=== PATIENT | female | born 1940 | race Caucasian/White ===

== ENCOUNTER 2019-04-18 07:26 | Inpatient (IN) | payer MEDICARE, OTHER ==
[2019-04-18] MEDS ORDERED: Sodium Chloride 0.9% 10 ML Syringe FLUSH PRN (07:48)
[2019-04-18] MEDS ORDERED: HYDROmorphone 0.5 MG/0.5 ML Syringe IVPUSH ONE ×2 (07:57→09:18)
--- NOTE | 2019-04-18 07:57 | EDM.PDOC ---
ED HPI GENERAL MEDICAL PROBLEM - General Chief Complaint: Abdominal Pain Stated Complaint: STOMACH PAIN Time Seen by Provider: 04/18/19 07:45 Source of Information: Reports: Patient, Old Records, RN History Limitations: Reports: No Limitations - History of Present Illness INITIAL COMMENTS - FREE TEXT/NARRATIVE: 78 yo female presents with progressive RLQ abdominal pain that began yesterday. She has a pHx of a hysterectomy and diverticulosis. She has no fever or dysuria. Pain is worse with movement or pressing on the area. She has had only some water so far today orally. 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: Other (see below) (none) Abdominal Pain Score (Numeric/FACES): 8 - Related Data Allergies Allergy/AdvReac Type Severity Reaction Status Date / Time Penicillins Allergy Rash Verified 11/09/14 06:51 sulfamethoxazole Allergy Hives Verified 11/09/14 06:51 [From Bactrim] trimethoprim [From Bactrim] Allergy Hives Verified 11/09/14 06:51 Home Meds: Home Meds Aspirin 325 mg PO DAILY 07/29/13 [History] Vitamin B Complex [B Complex] 1 each PO DAILY 07/29/13 [History] Calcium & Magnesium Carbonate [Antacid Gelatin Caplet] 1 tab PO DAILY 11/07/14 [ History] Alendronate Sodium 35 mg PO WEEKLY 04/18/19 [History] Cholecalciferol (Vitamin D3) [Vitamin D3] 1,000 unit PO DAILY 04/18/19 [History] Fluticasone Propionate [Flonase Allergy Relief] 2 spray CÉSAR DAILY 04/18/19 [ History] Past Medical History Cardiovascular History: Reports: Heart Murmur Gastrointestinal History: Reports: Diverticulosis 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 Denies: Black Stool, Bloody Stool, Constipation, Diarrhea, Distension, Hematemesis, Hematochezia, Melena, Nausea, Vomiting : Reports: No Symptoms Musculoskeletal: Reports: No Symptoms Skin: Reports: No Symptoms Neurological: Reports: No Symptoms Psychiatric: Reports: No Symptoms ED EXAM, GI/ABD - Physical Exam Exam: See Below Exam Limited By: No Limitations General Appearance: Alert, WD/WN, No Apparent Distress Eyes: Bilateral: Normal Appearance Ears: Normal External Exam, Normal Canal, Hearing Grossly Normal Throat/Mouth: Normal Inspection, Normal Lips, Normal Oropharynx, Normal Voice, No Airway Compromise Head: Atraumatic, Normocephalic Neck: Normal Inspection Respiratory/Chest: No Respiratory Distress, Lungs Clear, Normal Breath Sounds, No Accessory Muscle Use Cardiovascular: Regular Rate, Rhythm, No Edema GI/Abdominal Exam: Soft, No Distention, Guarding, Rebound, Tender (especially over McBurney's Point), Abnormal Bowel Sounds (decreased). No: Non-Tender, Distended, Rigid Extremities: Normal Inspection, Normal Range of Motion, Non-Tender, No Pedal Edema Neurological: Alert, Oriented, CN II-XII Intact, Normal Cognition, No Motor/ Sensory Deficits Psychiatric: Normal Affect, Normal Mood Skin Exam: Warm, Dry, Intact, Normal Color, No Rash Course - Vital Signs Text/Narrative:: Dr. Oliveira paged @ [phone] Last Recorded V/S: Last Vital Signs Temp 36.4 C 04/18/19 07:45 Pulse 89 04/18/19 09:07 Resp 16 04/18/19 09:07 BP 115/53 L 04/18/19 09:07 Pulse Ox 97 04/18/19 09:07 - Orders/Labs/Meds Orders: Active Orders 24 hr Category Date Time Status Iopamidol [Isovue-300 (61%)] Med 04/18/19 08:41 Active 100 ml IV . DIRECTED PRN Lactated Ringers [Ringers, Lactated] 1,000 ml Med 04/18/19 08:30 Active IV ASDIRECTED Sodium Chloride 0.9% [Saline Flush] Med 04/18/19 07:48 Active 10 ml FLUSH ASDIRECTED PRN Saline Lock Insert [OM.PC] Routine Oth 04/18/19 07:48 Ordered Medication Orders Lactated Ringer's (Ringers, Lactated) 1,000 mls @ 500 mls/hr IV ASDIRECTED KURTIS Last Admin: 04/18/19 08:32 Dose: 500 mls/hr Iopamidol (Isovue-300 (61%)) 100 ml IV . DIRECTED PRN PRN Reason: RADIOLOGY EXAM Stop: 04/19/19 08:42 Last Admin: 04/18/19 08:51 Dose: 100 ml Sodium Chloride (Saline Flush) 10 ml FLUSH ASDIRECTED PRN PRN Reason: Keep Vein Open Last Admin: 04/18/19 07:56 Dose: 10 ml Labs: Laboratory Tests 04/18/19 04/18/19 04/18/19 Range/Units 07:57 07:57 07:57 WBC 8.5 (4.5-11.0) K/uL RBC 3.90 (3.30-5.50) M/uL Hgb 10.3 L (12.0-15.0) g/dL Hct 33.5 L (36.0-48.0) % MCV 86 (80-98) fL MCH 26 L (27-31) pg MCHC 31 L (32-36) % Plt Count 184 (150-400) K/uL Sodium 139 L (140-148) mmol/L Potassium 4.2 (3.6-5.2) mmol/L Chloride 102 (100-108) mmol/L Carbon Dioxide 25 (21-32) mmol/L Anion Gap 16.2 H (5.0-14.0) mmol/L BUN 13 (7-18) mg/dL Creatinine 0.9 (0.6-1.0) mg/dL Est Cr Clr Drug Dosing 40.09 mL/min Estimated GFR (MDRD) > 60 (>60) Glucose 140 H (74-106) mg/dL Calcium 8.6 (8.5-10.1) mg/dL C-Reactive Protein 4.84 H (0.0-0.3) mg/dL Urine Color (YELLOW) Urine Appearance (CLEAR) Urine pH (5.0-8.0) Ur Specific [place] (1.008-1.030) Urine Protein (NEGATIVE) mg/dL Urine Glucose (UA) (NEGATIVE) mg/dL Urine Ketones (NEGATIVE) mg/dL Urine Occult Blood (NEGATIVE) Urine Nitrite (NEGATIVE) Urine Bilirubin (NEGATIVE) Urine Urobilinogen (0.2-1.0) EU/dL Ur Leukocyte Esterase (NEGATIVE) Urine RBC (0-5) Urine WBC (0-5) Ur Epithelial Cells Amorphous Sediment Urine Bacteria Urine Mucus 04/18/19 Range/Units 08:33 WBC (4.5-11.0) K/uL RBC (3.30-5.50) M/uL Hgb (12.0-15.0) g/dL Hct (36.0-48.0) % MCV (80-98) fL MCH (27-31) pg MCHC (32-36) % Plt Count (150-400) K/uL Sodium (140-148) mmol/L Potassium (3.6-5.2) mmol/L Chloride (100-108) mmol/L Carbon Dioxide (21-32) mmol/L Anion Gap (5.0-14.0) mmol/L BUN (7-18) mg/dL Creatinine (0.6-1.0) mg/dL Est Cr Clr Drug Dosing mL/min Estimated GFR (MDRD) (>60) Glucose (74-106) mg/dL Calcium (8.5-10.1) mg/dL C-Reactive Protein (0.0-0.3) mg/dL Urine Color Other A (YELLOW) Urine Appearance Cloudy A (CLEAR) Urine pH 7.5 (5.0-8.0) Ur Specific [place] 1.020 (1.008-1.030) Urine Protein 100 H (NEGATIVE) mg/dL Urine Glucose (UA) Negative (NEGATIVE) mg/dL Urine Ketones Trace H (NEGATIVE) mg/dL Urine Occult Blood Negative (NEGATIVE) Urine Nitrite Negative (NEGATIVE) Urine Bilirubin Small H (NEGATIVE) Urine Urobilinogen 0.2 (0.2-1.0) EU/dL Ur Leukocyte Esterase Trace H (NEGATIVE) Urine RBC Not seen (0-5) Urine WBC 5-10 H (0-5) Ur Epithelial Cells Moderate Amorphous Sediment Not seen Urine Bacteria Rare Urine Mucus Many Meds: Medications Generic Name Dose Route Start Last Admin Trade Name Freq PRN Reason Stop Dose Admin Lactated Ringer's 1,000 mls @ 500 mls/hr 04/18/19 08:30 04/18/19 08:32 Ringers, Lactated IV 500 mls/hr ASDIRECTED KURTIS Administration Iopamidol 100 ml 04/18/19 08:41 04/18/19 08:51 Isovue-300 (61%) IV 04/19/19 08:42 100 ml . DIRECTED PRN Administration RADIOLOGY EXAM Sodium Chloride 10 ml 04/18/19 07:48 04/18/19 07:56 Saline Flush FLUSH 10 ml ASDIRECTED PRN Administration Keep Vein Open Discontinued Medications Generic Name Dose Route Start Last Admin Trade Name Freq PRN Reason Stop Dose Admin Hydromorphone HCl 0.5 mg 04/18/19 07:57 04/18/19 08:06 Dilaudid IVPUSH 04/18/19 07:58 0.5 mg ONETIME ONE Administration Hydromorphone HCl 0.5 mg 04/18/19 09:18 04/18/19 09:26 Dilaudid IVPUSH 04/18/19 09:19 0.5 mg ONETIME ONE Administration Sodium Chloride 70 mls @ 3 mls/sec 04/18/19 08:45 04/18/19 08:50 Normal Saline IV 04/18/19 08:46 3 mls/sec ASDIRECTED KURTIS Administration Sodium Chloride 10 ml 04/18/19 08:45 04/18/19 08:50 Saline Flush FLUSH 04/18/19 08:46 10 ml ONETIME KURTIS Administration - Radiology Interpretation Free Text/Narrative:: CT abd/pelvis with IV contrast- acute appendicitis CT Results Date: 04/18/19 CT Results Time: 09:25 Departure - Departure Time of Disposition: 12:00 Disposition: Admitted As Inpatient 65 Condition: Fair Clinical Impression: Acute appendicitis Qualifiers: Acute appendicitis type: with localized peritonitis Appendicitis gangrene presence: unspecified whether gangrene present Appendicitis perforation presence : without perforation Appendicitis abscess presence: without abscess Qualified Code(s): K35.30 - Acute appendicitis with localized peritonitis, without perforation or gangrene - Discharge Information *PRESCRIPTION DRUG MONITORING PROGRAM REVIEWED*: No *COPY OF PRESCRIPTION DRUG MONITORING REPORT IN PATIENT HA: No Referrals: Radha Parsons PA-C [Primary Care Provider] - Forms: ED Department Discharge Sepsis Event Note - Evaluation Sepsis Screening Result: No Definite Risk - Focused Exam Vital Signs: Vital Signs Temp Pulse Resp BP Pulse Ox 04/18/19 09:07 89 16 115/53 L 97 04/18/19 07:45 36.4 C 103 H 16 115/61 97 04/18/19 07:40 36.4 C 103 H 16 115/61 97 Date Exam was Performed: 04/18/19 Time Exam was Performed: 10:25 - My Orders Last 24 Hours: My Active Orders 04/18/19 07:48 Sodium Chloride 0.9% [Saline Flush] 10 ml FLUSH ASDIRECTED PRN Saline Lock Insert [OM.PC] Routine 04/18/19 08:30 Lactated Ringers [Ringers, Lactated] 1,000 ml IV ASDIRECTED 04/18/19 08:41 Iopamidol [Isovue-300 (61%)] 100 ml IV . DIRECTED PRN - Assessment/Plan Last 24 Hours: My Active Orders 04/18/19 07:48 Sodium Chloride 0.9% [Saline Flush] 10 ml FLUSH ASDIRECTED PRN Saline Lock Insert [OM.PC] Routine 04/18/19 08:30 Lactated Ringers [Ringers, Lactated] 1,000 ml IV ASDIRECTED 04/18/19 08:41 Iopamidol [Isovue-300 (61%)] 100 ml IV . DIRECTED PRN
[2019-04-18] MEDS ORDERED: Lactated Ringers 1,000 ML IV SCH (08:30)
[2019-04-18] MEDS ORDERED: Iopamidol 612 MG/ML 100 ML Bottle IV PRN (08:41)
[2019-04-18] MEDS ORDERED: Sodium Chloride 0.9% 10 ML Syringe FLUSH SCH (08:45)
--- NOTE | 2019-04-18 09:25 | CT ---
Abdomen Pelvis w Cont CLINICAL HISTORY: Right lower quadrant pain COMPARISON: None. TECHNIQUE: Axial tomographic images are obtained from the dome of the diaphragm to the pubic symphysis with IV contrast enhancement. No oral contrast was used. Auto dosage reduction and iterative reconstruction techniques employed. FINDINGS: The lung bases show patchy densities bilaterally most which appears to be atelectasis. There is a pleural-based lingular density which may be scarring and atelectasis.. The liver shows some diffuse fatty infiltration. There is mild intrahepatic biliary prominence.. The gallbladder appears mildly distended. There is no wall thickening or pericholecystic inflammatory changes.. The spleen has a normal size and shape. Common bile duct is mildly prominent. This extends through the pancreatic head to near the ampulla. The pancreas shows no mass. There is pancreatic ductal dilatation. The adrenal glands appear normal bilaterally. The kidneys show no mass, stones or hydronephrosis. The ureters have a normal course and contour. The aorta shows atheromatous change without aneurysm. There is no suspicious retroperitoneal adenopathy. There are surgical sutures in the periiliac region which may be from previous bruno dissection. There is mild sigmoid diverticulosis. There is some mild dilatation of small bowel loops in the lower abdomen. There is free fluid in the pelvis. The appendix is thickened. It measures between 10 and 14 mm. There appears to be wall thickening. There are some regional inflammatory changes. IMPRESSION: Thickened appendix and inflammatory changes in the right lower quadrant with pelvic fluid is highly suspect for acute appendicitis. Biliary dilatation without obvious biliary stone. Small ampullary lesion or stricture is not excluded Previous lower retroperitoneal surgery appears to be normal dissection
[2019-04-18] MEDS ORDERED: Dextrose 5%-Lactated Ringers 1,000 ML IV SCH (10:30)
[2019-04-18] MEDS ORDERED: Meropenem 500 MG in Sodium Chloride 0.9% 50 ML IV ONE (10:40)
[2019-04-18] MEDS ORDERED: Neostigmine Methylsulfate 1 MG/ML 5 ML Syringe ONE (10:51)
[2019-04-18] MEDS ORDERED: Propofol 200 MG/20 ML SDV ONE (10:51)
[2019-04-18] MEDS ORDERED: Succinylcholine 200 MG/10 ML MDV ONE (10:51)
[2019-04-18] MEDS ORDERED: Rocuronium 50 MG/5 ML Vial ONE (10:51)
[2019-04-18] MEDS ORDERED: Dexamethasone 4 MG/ML SDV ONE (10:51)
[2019-04-18] MEDS ORDERED: Glycopyrrolate 0.2 MG/ML 5 ML MDV ONE (10:51)
[2019-04-18] MEDS ORDERED: Ondansetron 4 MG/2 ML SDV ONE (10:51)
[2019-04-18] MEDS ORDERED: fentaNYL 250 MCG/5 ML SDV ONE (10:53)
[2019-04-18] MEDS ORDERED: Bupivacaine 0.5%/EPINEPHrine 1:200,000 50 ML MDV ONE (11:29)
[2019-04-18] MEDS: Meropenem 500 MG SDV ONE ×2 (12:28→14:20)
[2019-04-18] MEDS ORDERED: Meropenem 500 MG SDV ONE (12:38)
[2019-04-18] MEDS ORDERED: fentaNYL 100 MCG/2 ML SDV ONE (13:12)
[2019-04-18] MEDS ORDERED: HYDROmorphone/Normal Saline 15 MG/30 ML PCA IV PRN (13:52)
[2019-04-18] MEDS ORDERED: diphenhydrAMINE 50 MG/ML SDV IVPUSH PRN (13:52)
[2019-04-18] MEDS ORDERED: diphenhydrAMINE 25 MG Cap PO PRN (13:52)
[2019-04-18] MEDS ORDERED: Naloxone 0.4 MG/ML SDV IVPUSH PRN (13:52)
[2019-04-18] MEDS ORDERED: Ondansetron 4 MG/2 ML SDV IVPUSH PRN ×2 (13:52→14:43)
[2019-04-18] MEDS ORDERED: Naloxone 0.4 MG/ML SDV IV PRN (13:55)
[2019-04-18] MEDS ORDERED: hydrOXYzine HCL 100 MG/2 ML SDV IM PRN (14:57)
[2019-04-18] MEDS: Pantoprazole 40 MG Vial IV SCH (16:02)
[2019-04-18] MEDS: Dextrose 5%-Lactated Ringers 1,000 ML IV SCH (16:11)
[2019-04-18] MEDS: Lactated Ringers 1,000 ML IV SCH (16:12)
[2019-04-18] MEDS: Meropenem 500 MG in Sodium Chloride 0.9% 50 ML IV SCH (18:10)
[2019-04-18] MEDS ORDERED: Diphtheria,Pertussis(Acell),Tetanus Vaccine 0.5 ML SDV IM ONE (21:00)
[2019-04-19] MEDS: Dextrose 5%-Lactated Ringers 1,000 ML IV SCH (01:57)
[2019-04-19] MEDS: Meropenem 500 MG in Sodium Chloride 0.9% 50 ML IV SCH ×3 (02:03→17:51)
[2019-04-19] MEDS: Lactated Ringers 1,000 ML IV SCH (03:21)
[2019-04-19] MEDS ORDERED: Acetaminophen 325 MG Tab PO ONE (06:40)
[2019-04-19] MEDS ORDERED: Bupivacaine 0.5% 50 ML MDV ONE (06:53)
[2019-04-19] MEDS ORDERED: Lidocaine 1% with EPINEPHrine 1:100,000 50 ML MDV ONE (06:53)
[2019-04-19] MEDS ORDERED: Meropenem 500 MG SDV ONE (06:56)
[2019-04-19] MEDS: Fluticasone Propionate Nasal Spray 16 GM Bottle NASBOTH SCH (09:59)
--- NOTE | 2019-04-19 10:18 | PN ---
DATE OF SERVICE: 04/19/2019 SUBJECTIVE: Eva is postoperative day #1. She remains n.p.o. Pain is controlled. Vital signs have been stable. Oral intake was 120 ice chips. Huang output was 945. DEEP drain 1 put out 175 and DEEP drain 2 put out 85. An NG is intact. No output recorded. REVIEW OF SYSTEMS: Remainder of review of systems negative for any pertinent positives and negatives. OBJECTIVE: GENERAL: Eva Sanches is a pleasant 78-year-old female. She is sitting up in the chair. Alert and orientated. VITAL SIGNS: TPR is 96.2, 84, 16, blood pressure 114/80. HEENT: Negative. NECK: Supple. HEART: Regular rate and rhythm. LUNGS: Clear. ABDOMEN: Dressings dry and intact. Abdominal binder is on. DEEP drains as above. EXTREMITIES: Without peripheral edema. ASSESSMENT: 1. Laparoscopy converted to exploratory laparotomy with generalized peritoneal wash and. a. Right colectomy. b. Separate small-bowel resection. c. Drainage of pelvic and pericolonic abscess for perforated appendicitis with partial cecal necrosis. 2. Diffuse purulent peritonitis and focal well-defined pelvic and pericolonic abscesses. Focal superficial necrosis of the transverse colon involving abscessed wall and avascularization. Associated small bowel deserosalization after dissection of pelvic adhesions. Date of surgery, 04/18/2019. Surgeon, Roly Oliveira MD. PLAN: The patient will be taken to OR for second look laparotomy and washout early this afternoon. Case to follow. Continue present orders. Verbal order to be given Tylenol 650 mg p.o. or 1 time. We will evaluate p.r.n. and orders to be written postoperatively. Amy Monsivais PA-C /[id number]
[2019-04-19] MEDS ORDERED: fentaNYL 250 MCG/5 ML SDV ONE (10:25)
[2019-04-19] MEDS ORDERED: Succinylcholine 200 MG/10 ML MDV ONE (10:26)
[2019-04-19] MEDS ORDERED: Glycopyrrolate 0.2 MG/ML 5 ML MDV ONE (10:26)
[2019-04-19] MEDS ORDERED: Dexamethasone 4 MG/ML SDV ONE (10:26)
[2019-04-19] MEDS ORDERED: Neostigmine Methylsulfate 1 MG/ML 5 ML Syringe ONE (10:26)
[2019-04-19] MEDS ORDERED: Ondansetron 4 MG/2 ML SDV ONE (10:26)
[2019-04-19] MEDS ORDERED: Rocuronium 50 MG/5 ML Vial ONE (10:26)
[2019-04-19] MEDS ORDERED: Propofol 200 MG/20 ML SDV ONE (10:26)
[2019-04-19] MEDS ORDERED: Diphtheria,Pertussis(Acell),Tetanus Vaccine 0.5 ML SDV IM ONE (15:00)
[2019-04-19] MEDS: Pantoprazole 40 MG Vial IV SCH (15:18)
[2019-04-20] MEDS: Meropenem 500 MG in Sodium Chloride 0.9% 50 ML IV SCH ×3 (01:26→17:32)
[2019-04-20] MEDS: Dextrose 5%-Lactated Ringers 1,000 ML IV SCH (02:10)
[2019-04-20] MEDS: Fluticasone Propionate Nasal Spray 16 GM Bottle NASBOTH SCH (09:05)
[2019-04-20] MEDS: Furosemide 20 MG/2 ML VIAL IVPUSH SCH ×2 (09:05→13:59)
--- NOTE | 2019-04-20 10:37 | PN ---
DATE OF SERVICE: 04/20/2019 SUBJECTIVE: Eva is resting comfortably in bed. States her pain is controlled. She had a 2nd surgery yesterday. She has been up ambulating and sitting in the chair. REVIEW OF SYSTEMS: Remainder of review of systems negative for any pertinent positives and negatives. OBJECTIVE: GENERAL: Eva Sanches is a pleasant 78-year-old female in no acute distress. VITAL SIGNS: TPR 96.6, 80, 14, blood pressure 130/66. HEENT: Negative. NECK: Supple. HEART: Regular rate and rhythm. LUNGS: Clear. ABDOMEN: Dressings dry and intact. DEEP drains have put out 235 and 180 respectively. NG has put out 175 mL of a dark green drainage. EXTREMITIES: SCDs are on and there is no peripheral edema. ASSESSMENT: 1. Second-look laparotomy with generalized washout and 2 drainage of purulent right subhepatic and inflammatory fluid collection. a. Debridement of abdominal wall. b. Placement of Interceed mesh for SP pelvic abscess with diffuse peritonitis. 2. Right subhepatic inflammatory fluid collection, thinly purulent. 3. Focal necrosis of abdominal wall. 4. Formation to bring down to pelvis. Date of surgery: 04/19/2019. Surgeon, Roly Oliveira. 5. Laparoscopic converted to exploratory laparotomy with generalized peritoneal wash. a. Right colectomy. b. Separate small-bowel resection. c. Drainage of pelvic and pericolonic abscess for perforated appendicitis with partial cecal necrosis for diffuse purulent peritonitis with focal well-defined pelvic and pericolonic abscesses, focal superficial necrosis of the transverse colon, involving abscess wall and a vascularization and associated small bowel serialization after dissection of pelvic adhesions. d. Date of surgery: 04/18/2019. Surgeon: Roly Oliveira MD. PLAN: 1. Schedule and have consent signed for delayed primary closure, , 04/21/2019 with IV and local sedation plus TAP block. Surgeon: Roly Oliveira MD. 2. N.p.o. after midnight. 3. Lasix 20 mg IV now and repeat at 1400. 4. Leave Huang catheter in for accurate intake and output. 5. Type and screen for 2 units of packed red blood cells in a.m. 04/21/2019 and K-Phos 60 mmol IV today. 6. Good to pulmonary toilet. 7. We will evaluate p.r.n. or in a.m. Amy Norby, PA-C /[id number]
[2019-04-20] MEDS: Potassium Phosphates 20 MMOLE in Sodium Chloride 0.9% 250 ML IV SCH ×3 (10:46→18:24)
[2019-04-20] MEDS: Pantoprazole 40 MG Vial IV SCH (16:42)
[2019-04-21] MEDS: Dextrose 5%-Lactated Ringers 1,000 ML IV SCH ×2 (02:17→11:59)
[2019-04-21] MEDS: Meropenem 500 MG in Sodium Chloride 0.9% 50 ML IV SCH ×3 (02:17→17:53)
[2019-04-21] MEDS ORDERED: Lidocaine 1% with EPINEPHrine 1:100,000 50 ML MDV ONE (06:39)
[2019-04-21] MEDS ORDERED: Meropenem 500 MG SDV ONE (06:39)
[2019-04-21] MEDS ORDERED: Bupivacaine 0.5% 50 ML MDV ONE (06:39)
[2019-04-21] MEDS ORDERED: Propofol 200 MG/20 ML SDV ONE ×2 (07:15→07:54)
[2019-04-21] MEDS ORDERED: Ropivacaine 32 ML, dexAMETHasone 8 MG, EPINEPHrine 0.4 MG, Sodium Chloride 0.9% 45.6 ML NERVRT SCH ×4 (07:15)
[2019-04-21] MEDS ORDERED: Bupivacaine 0.5% 50 ML MDV INJECT ONE (07:40)
[2019-04-21] MEDS ORDERED: Meropenem 500 MG SDV IRR ONE (07:40)
[2019-04-21] MEDS ORDERED: Lidocaine 1% with EPINEPHrine 1:100,000 50 ML MDV INJECT ONE (07:40)
[2019-04-21] MEDS: Fluticasone Propionate Nasal Spray 16 GM Bottle NASBOTH SCH (08:52)
[2019-04-21] MEDS: Potassium Phos in 0.9 % NaCl 15 MMOL in Premix Bag 1 BAG IV SCH ×6 (10:28→18:13)
--- NOTE | 2019-04-21 11:26 | PN ---
DATE OF SERVICE: 04/21/2019 SUBJECTIVE: Eva is n.p.o. She will be having delayed primary closure today. Vital signs have been stable. She has been up ambulating, using the MONEY MARKET CLERK for pain. DEEP drains have put out 150 and 80 respectively. NG is 275, which nursing staff thought mainly to be from ice chips that she has been taking in. REVIEW OF SYSTEMS: The remainder of review of systems negative for any pertinent positives and negatives. OBJECTIVE: GENERAL: Eva Sanches is a pleasant 78-year-old female. She is resting comfortably in bed. VITAL SIGNS: TPR at 0218 shows 96.9, 82, and 16; blood pressure 130/62. HEENT: Negative. NECK: Supple. HEART: Regular rate and rhythm. LUNGS: Clear. ABDOMEN: Dressing is dry and intact. DEEP drains as above. EXTREMITIES: Without peripheral edema. Huang catheter intact. ASSESSMENT: 1. Second-look laparotomy with generalized washout. 2. Drainage of purulent right subhepatic and inflammatory fluid collection. a. Debridement of abdominal wall. b. Placement of Interceed mesh for pelvic abscess and diffuse peritonitis. 3. Right subhepatic inflammatory fluid collection, thinly purulent. 4. Focal necrosis of abdominal wall. 5. Formation to bring down to pelvis. Date of Surgery: 04/19/2019. Surgeon: Roly Oliveira MD Laparoscopic converted to exploratory laparotomy with generalized peritoneal wash. 1. Right colectomy. 2. Separate small-bowel resection. 3. Drainage of pelvic and pericolonic abscess for perforated appendix with partial cecal necrosis. 4. Diffuse purulent peritonitis with focal well-defined pelvic and pericolonic abscesses, focal superficial necrosis of the transverse colon involving abscess wall and vascularization and associated small bowel deserosalization after dissection of pelvic adhesions. Date of Surgery: 04/18/2019. Surgeon: Roly Oliveira MD PLAN: Orders to be written postoperatively. Eva will be getting 1 unit of packed red blood cells for hemoglobin 8.9. NG, Huang catheter, and DEEP drains will be discontinued. Additional orders to be written. Those orders plus additional orders will be written post delayed primary closure. Amy Monsivais PA-C /[id number]
[2019-04-21] MEDS ORDERED: Furosemide 20 MG/2 ML VIAL IV ONE (14:00)
[2019-04-21] MEDS: Pantoprazole 40 MG Vial IV SCH (16:51)
[2019-04-22] MEDS: Meropenem 500 MG in Sodium Chloride 0.9% 50 ML IV SCH ×3 (02:24→18:15)
[2019-04-22] MEDS ORDERED: Furosemide 20 MG/2 ML VIAL IVPUSH ONE (08:00)
[2019-04-22] MEDS: Fluticasone Propionate Nasal Spray 16 GM Bottle NASBOTH SCH (08:33)
[2019-04-22] MEDS: Docusate Sodium 100 MG Cap PO SCH ×2 (08:33→20:59)
[2019-04-22] MEDS: Potassium Phos in 0.9 % NaCl 15 MMOL in Premix Bag 1 BAG IV SCH ×6 (08:41→21:38)
[2019-04-22] MEDS ORDERED: Bisacodyl 5 MG Tab PO SCH (09:00)
[2019-04-22] MEDS ORDERED: traMADol 50 MG Tab PO PRN (09:25)
[2019-04-22] MEDS ORDERED: Acetaminophen 325 MG Tab PO PRN (09:26)
[2019-04-22] MEDS: Pantoprazole 40 MG Tab.CR PO SCH (10:11)
--- NOTE | 2019-04-22 11:26 | PN ---
DATE OF SERVICE: 04/22/2019 SUBJECTIVE: Eva had delayed primary closure yesterday. She used one dose of her INTERACTIVE MEDIA SPECIALIST and had 1 unit of packed red blood cells yesterday. She has been up, ambulating, and has no questions or concerns. Vital signs have been stable. OBJECTIVE: GENERAL: Eva Sanches is a pleasant 78-year-old female. VITAL SIGNS: TPR is 97.3, 76, 16. Blood pressure 138/70. HEENT: Negative. NECK: Supple. HEART: Regular rate and rhythm. LUNGS: Clear. ABDOMEN: Dressing is dry and intact. Abdominal binder is on. EXTREMITIES: Without peripheral edema. ASSESSMENT: 1. Delayed primary closure on 04/21/2019. Surgeon, Roly Oliveira MD. 2. Second-look laparotomy with generalized wash out. 3. Drainage of purulent right subhepatic and inflammatory fluid collection with debridement of abdominal wall and placement of Interceed mesh for pelvic abscess and diffuse peritonitis. DISCHARGE DIAGNOSES: 1. Right subhepatic inflammatory fluid collection, thinly purulent. 2. Focal necrosis of abdominal wall. 3. Formation to bring the bowel down to the pelvis. Date of surgery, 04/19/2019. Surgeon, Roly Oliveira MD. 4. Laparoscopic converted to exploratory laparotomy with generalized peritoneal wash. a. Right colectomy. b. Separate small-bowel resection. c. Drainage of pelvic pericolonic abscess for perforated appendix and partial cecal necrosis. d. Diffuse purulent peritonitis with focal well-defined pelvic and pericolonic abscesses for focal superficial necrosis of the transverse colon involving abscess wall and vascularization and associated small bowel deserosalization after dissection of pelvic adhesions. Date of surgery, 04/18/2019. Surgeon, Roly Oliveira MD. PLAN: 1. Colace 100 mg p.o. b.i.d. 2. Dulcolax 10 mg b.i.d. Discontinue after the patient has bowel movement. 3. Call if the patient has bowel movement, then we will advance diet. 4. Lasix 20 mg IV. 5. K-Phos 45 millimoles IV. 6. Check CBC, CMP, mag, phos, BNP in a.m. 7. May shower. 8. Good pulmonary toilet. We will evaluate p.r.n. or in a.m. Amy Monsivais PA-C /[id number]
[2019-04-22] MEDS: Lactobacillus Rhamnosus GG (Probiotic) Cap PO SCH (20:59)
[2019-04-23] MEDS: Meropenem 500 MG in Sodium Chloride 0.9% 50 ML IV SCH (01:42)
[2019-04-23] MEDS: Pantoprazole 40 MG Tab.CR PO SCH (07:43)
[2019-04-23] MEDS: Docusate Sodium 100 MG Cap PO SCH (08:07)
[2019-04-23 08:53] VITALS: BP 121/65; PULSE 86
[2019-04-23] MEDS: Fluticasone Propionate Nasal Spray 16 GM Bottle NASBOTH SCH (10:01)
[2019-04-23] MEDS: Lactobacillus Rhamnosus GG (Probiotic) Cap PO SCH (10:01)
--- NOTE | 2019-04-25 10:18 | PN ---
DATE OF SERVICE: 04/21/2019 The patient has been afebrile with stable vital signs. She did have a net diuresis of around 700 mL yesterday. BNP is down a little bit, still somewhat elevated. Hemoglobin is 8.9. I will give her 1 unit of packed RBCs today. Potassium and phosphate are marginally low and also being supplemented. We will give her a dose of IV Lasix after the transfusion. NG tube, Huang catheter, and DEEP drains will be removed after the delayed primary closure is completed. Roly Oliveira MD /[id number]
--- NOTE | 2019-04-25 11:48 | DISCH ---
FINAL DIAGNOSES: 1. Perforated appendicitis with partial cecal necrosis. 2. Diffuse purulent peritonitis with a focal well-defined pelvic and pericolonic abscess. 3. Focal superficial necrosis of transverse colon involved in abscess wall. 4. Areas of small bowel deserosalization after dissection from pelvic adhesions. 5. History of carcinoma in situ of vulva. 6. History of cardiac murmur. OPERATIVE PROCEDURES: 1. On 04/18, a laparoscopy converted to exploratory laparotomy with generalized peritoneal washout and: a. Right colectomy. b. Separate small bowel resection. c. Drainage of pelvic and pericolonic abscess. 2. On 04/19, second-look laparotomy with generalized washout and: a. Drainage of a thinly purulent right subhepatic inflammatory fluid collection. b. Debridement of abdominal wall. c. Placement of Interceed mesh. 3. On 04/21, delayed primary closure of abdominal incision. SUMMARY: This is a 78-year-old presenting with roughly a 48-hour history of lower abdominal pain. Initial workup was consistent with an acute appendicitis. Initially, the laparoscopic approach was undertaken. The patient was noted to have diffuse purulent peritonitis and decision was made to proceed with an open approach as it was unlikely that we will be able to satisfactorily wash all areas of the abdomen involving the purulent contamination. A midline incision was then reused and the patient was noted to have perforated appendicitis with free stool in the abdomen and what appeared to be some focal necrosis of the adjacent cecum. The patient's proximal transverse colon was also noted to be abscessed in the cavity which was otherwise a well-defined pelvic and pericolonic abscess cavity adjacent to the ascending colon and cecum extending somewhat down in the pelvis. That area of transverse colon also had some superficial necrosis on it. Given this, a right colectomy was undertaken. The patient had dense adhesions in the pelvis from a previous hysterectomy and a separate small bowel resection was required after some of those areas were deserosalized after dissecting from the depths of the pelvis. Cultures grew out Klebsiella pneumoniae and Strep viridans which would be sensitive to the antibiotics that the patient received, especially the meropenem and Azactam. Due to the diffuse peritonitis, a secondary washout procedure was undertaken on 04/19. This did show a focal thinly purulent fluid collection in the right subhepatic area, otherwise generalized washout was undertaken. Interceed mesh was placed at the focal area of abdominal wall involving the fascia, preperitoneal fat, and peritoneum which was somewhat necrotic, this was debrided. Otherwise, fascia was closed with Interceed mesh to try to protect from adhesion formation. On 04/21, the patient underwent delayed primary closure of the abdominal incision. Postoperatively, the patient has done well. She is presently tolerating regular diet. She was having some frequent loose bowel movements. She is also receiving Tylenol and Celebrex for pain. I think we will send her home with just Tylenol for pain. She was instructed to take some probiotic capsules. Otherwise, she will continue on a regular diet. Instructed not to lift more than 10 to 15 pounds until 05/20/2019, and be following up with Amy Monsivais at [facility] on 05/02/2019.
--- NOTE | 2019-04-28 11:46 | OR ---
DATE OF PROCEDURE: 04/18/2019 SURGEON: Roly Oliveira MD PREOPERATIVE DIAGNOSIS: Acute appendicitis. POSTOPERATIVE DIAGNOSES: 1. Perforated appendicitis with partial cecal necrosis. 2. Diffuse purulent peritonitis with focal well-defined pelvic and pericolonic abscess. 3. Focal superficial necrosis of transverse colon involving the abscess wall. 4. Area of small bowel deserosalization after dissection of some pelvic adhesions. OPERATIVE PROCEDURE: Diagnostic laparoscopy converted to laparotomy with generalized peritoneal washout and; 1. Right colectomy (94223). 2. Separate small bowel resection (32699). 3. Drainage of pericolonic pelvic abscess (96253). ANESTHESIA: General. FREEZER UNLOADER: Amy Monsivais PA-C. INDICATIONS FOR PROCEDURE: This is a 78-year-old presenting with roughly 3-day history of abdominal pain and was found on workup to have appendicitis clinically and per CAT scan. The plan is to proceed with a diagnostic laparoscopy, laparotomy if necessary, and appendectomy with additional procedures as needed. Potential risks including bleeding, infection, leaks from various GI tract closures, possibly cardiopulmonary, septic, or hemorrhagic complications leading to were all discussed, and the patient wishes to proceed. DETAILS OF PROCEDURE: The patient was taken to the operating room and placed in a supine position. After general endotracheal anesthesia was induced, a Huang catheter was inserted, and the abdomen prepped and draped. Initially, because of the patient's previous lower midline incision, a trocar was placed in the right upper quadrant. This was placed into the peritoneal cavity under direct vision and inflated 15 mmHg pressure with CO2. Two additional trocars, one in the upper abdomen on the left side and one on the left lower quadrant, were then placed. A generalized exploration was then undertaken. The patient was noted to have very diffuse purulent peritonitis extending in all areas of the abdomen, except to some extent up in the area of the spleen. It was felt that adequate washout would not be satisfactorily completed with a laparoscopic approach; therefore, we removed the trocars. A midline incision was then made roughly a handsbreadth below the xiphoid and extending down roughly a handsbreadth above the pubis. This was carried down through the full-thickness abdominal wall. Initially, as one mobilized the appendix upward, there was a well-defined abscess. Cultures of this were obtained. There was actually free stool present in the area at and around the abscess leaking from the open appendix. There was some necrosis and marked distention of the adjacent colon. As one got pulled up in the abscess away from the lateral pelvic wall, that had been drained, and as mentioned, cultures were obtained. There was also a flap of omentum and proximal transverse colon which were against the abscess wall, and there appeared to be some necrosis on those surfaces. Given this, the decision was made to proceed with a right colectomy. After initially getting source control, as far as any additional leakage, 4 L of meropenem were used to wash out the abdomen in general, and at that point, we then commenced with the resection. The distal small bowel was initially found to be quite fixed into the pelvis due to the patient's previous hysterectomy. As this was mobilized upward, a portion of this was deserosalized. This area was initially resected, being divided proximal and distal to the areas of involvement with DON onel and the underlying mesenteric similarly divided. The GI tract continuity was then re-established with a [id number] enteroenterostomy with internal firings of the DON onel and the common opening similarly closed off with a DON stapler. Angles of anastomosis and mesenteric defect were approximated with some 3-0 Vicryl stitch. The peritoneal reflection of the distalmost small bowel, cecum, and ascending colon were then divided, allowing those structures being mobilized medially. Care was taken to avoid injury to the right ureter and duodenum through the course of this. The transverse colon was then divided with a DON purple load somewhat to the right of the middle colic vessels, and the distal small bowel proximal to the ileocecal valve was also then divided with DON stapler. The intervening mesentery was then divided with GI tract loads as well. GI tract continuity in this case was then established with a [id number]-wv-brto enteroenterostomy with internal firings of the DON stapler once again. The common opening was then closed transversely, and the angles of anastomosis and mesenteric defect were then approximated with some 3-0 Vicryl stitch also. Second generalized washout was then undertaken. Two Mauro-Enrique drains were then placed, one down into the pelvis where the primary abscess had been noted, and the other across the central area. Care had been taken to wash out all areas, including the interloop areas of the small bowel. At this point, the midline fascia was approximated with #2 Vicryl stitch. The intent at this point was then to proceed with a second look washout type procedure tomorrow to rule out any recurrent abscess formation. The skin and subcutaneous tissue were packed open with Iodoform gauze. Bilateral transversus abdominis plane blocks were then placed, and the patient was taken to the recovery room in stable condition. Physician orthopaedic physician assistant, Amy Monsivais, played an essential role in assisting in this case, helping to position the patient, retract structures as needed, as well as suturing and cutting sutures when indicated. Her presence improved patient safety and decreased operative time. Roly Oliveira MD /[id number]
--- NOTE | 2019-05-02 13:16 | OR ---
DATE OF PROCEDURE: 04/19/2019 SURGEON: Roly Oliveira MD PREOPERATIVE DIAGNOSIS: Status post laparotomy for diffuse purulent peritonitis. POSTOPERATIVE DIAGNOSES: 1. Status post laparotomy for diffuse purulent peritonitis. 2. Right hepatic inflammatory fluid collection. 3. Focal necrosis of abdominal wall. 4. Lack of omentum to bring down to pelvis. OPERATIVE PROCEDURES: Second-look laparotomy with generalized washout (14256). 1. Drainage of thinly purulent right subhepatic inflammatory fluid collection (54386). 2. Debridement of abdominal wall (69271). 3. Placement of Interceed mesh to limit adhesion formation between pelvic and abdominal wall and underlying viscera (80666). ANESTHESIA: General. LOG LOADER HELPER: Amy Monsivais PA-C. INDICATIONS FOR PROCEDURE: This is a 78-year-old female presenting with diffuse purulent peritonitis along with a pericolonic and pelvic abscess treated yesterday. Because of the extensiveness of the purulent, the patient is scheduled to undergo a second-look laparotomy today for additional washout and procedures as indicated. Potential risks of the procedure including bleeding, infection, injury to underlying viscera were all reviewed, and the patient wishes to proceed. DETAILS OF PROCEDURE: The patient was taken to the operating room and placed in a supine position. After general endotracheal anesthesia was induced, the previous operative dressing was taken down and the abdomen prepped and draped. The midline fascial sutures were then divided and it was noted the patient had some necrotic material located in the left side of the abdominal wall more or less along the midportion of the incision consisting of some necrotic peritoneum and preperitoneal fat and fascia. This was debrided and sent as a separate specimen. At this point, a generalized exploration was undertaken. The patient did have a thinly purulent inflammatory fluid collection located in the right subhepatic space. This was drained and cultures obtained. Following this, then the abdomen was irrigated with several liters of meropenem alternating with Zosyn containing saline solution, and at that point all areas appeared to be clear. Preexisting drains were adjusted with the drain getting down near the pelvis across the lower abdominal and pelvic abscess being left in place. The other drain which had been placed in the interloop area which at this point appeared to be fairly clear was then repositioned over into the right subhepatic area with that abscess being drained today. At this point, with no further problems noted, the patient had Interceed mesh placed across the incision and from there down toward the pelvis omentum to mobilize downward to separate the bowel from the pelvic and abdominal monson. Midline fascia was then approximated with #2 Vicryl stitch and with an anticipated delayed primary closure in 48 hours, the skin and subcutaneous tissue were packed open and the patient was taken to the recovery room in satisfactory condition. There were no evident complications. Physician physician office assistant, Amy Monsivais, played an essential role in assisting in this case, helping to position the patient, retract structures as needed, as well as suturing and cutting sutures when indicated. Her presence improved patient safety and decreased operative time. Roly Oliveira MD /[id number]
--- NOTE | 2019-05-02 14:59 | OR ---
DATE OF PROCEDURE: 04/21/2019 SURGEON: Roly Oliveira MD PREOPERATIVE DIAGNOSIS: Open abdominal incision. POSTOPERATIVE DIAGNOSIS: Open abdominal incision. OPERATIVE PROCEDURE: Delayed primary closure of open abdominal incision. ANESTHESIA: IV sedation plus local. INDICATIONS FOR PROCEDURE: The patient is status post a perforated appendicitis with diffuse purulent peritonitis and focal areas of necrosis within the abdomen requiring extensive colon resection with drainage of abscesses. At the time of most recent second- look procedure, the skin and subcutaneous tissue was left open for planned delayed primary closure at this time. Potential risks of procedure including bleeding and infection were reviewed, and the patient wishes to proceed. DESCRIPTION OF PROCEDURE: The patient was taken to the operating room, placed in a supine position. After IV sedation was administered, the abdominal dressing was taken down, the wound was inspected, and found to be clean. The abdomen was then prepped and draped. Bilateral transversus abdominis plane blocks were then placed using ultrasound guidance, and the incision anesthetized with 1% lidocaine mixed with Marcaine and irrigated with meropenem- containing saline solution. Incision was then closed with 2 layers of 3-0 and 4-0 Vicryl stitch deep and onel for the skin. Dressing was applied. The patient was taken to the recovery room in satisfactory condition. Roly Oliveira MD /[id number]
== END 2019-04-23 10:25 | disposition home or self-care (01) | DRG 329 ==
LOC: JP.ED 07:26 → JP.SDS 10:30 → JP.MS 13:40
PROVIDERS: ADMIT Surgery; ATTEND Surgery
PROC: 0DBF0ZZ Excision of Right Large Intestine, Open Approach (ICD-10-PCS; principal; 2019-04-18)
PROC: 0DB80ZZ Excision of Small Intestine, Open Approach (ICD-10-PCS; 2019-04-18)
PROC: 0W9H0ZZ Drainage of Retroperitoneum, Open Approach (ICD-10-PCS; 2019-04-18)
PROC: 0DBW0ZZ Excision of Peritoneum, Open Approach (ICD-10-PCS; 2019-04-19)
PROC: 3E0M05Z Introduction of Adhesion Barrier into Peritoneal Cavity, Open Approach (ICD-10-PCS; 2019-04-19)
DX: K35.80 Unspecified acute appendicitis (principal); K35.30 Acute appendicitis with localized peritonitis, without perforation or gangrene; K55.069 Acute infarction of intestine, part and extent unspecified; Z87.19 Personal history of other diseases of the digestive system; K55.041 Focal (segmental) acute infarction of large intestine; N73.6 Female pelvic peritoneal adhesions (postinfective); Z88.0 Allergy status to penicillin; Z88.1 Allergy status to other antibiotic agents; Z88.2 Allergy status to sulfonamides; Z90.710 Acquired absence of both cervix and uterus; Z79.82 Long term (current) use of aspirin; Z79.899 Other long term (current) drug therapy; Z85.42 Personal history of malignant neoplasm of other parts of uterus; Z53.31 Laparoscopic surgical procedure converted to open procedure
CPT/HCPCS: 36415; 74177 ×2; 80048; 81001; 85027; 86140; 87070 ×2; 87075 ×2; 87077 ×2; 87186; 87205 ×2; 88307; 96361; 96374; 96376; 99284; 99285; J0171; J0330; J1100 ×2; J1170 ×2; J2185 ×3; J2405; J2704; J2710; J2795; J3010 ×2; J3490; J7050 ×3; J7120; J7121; Q9967; 36430; 80053; 83735; 83880; 84100; 85025; 86850; 86900; 86901; 86920; 86922; 88304; 90471; 90715; 94762; A9270-GY; C9113; J1940; P9016